=== PATIENT | female | born 1985 | race Caucasian/White ===

== ENCOUNTER 2017-03-13 01:39 | Emergency (ER) | payer OTHER ==
[~2017-03-13 01:39] MED LIST: AMOXICILLIN500 M2 PO; AUGMENTIN 875-1 EAC2 PO; BETA BLOCKER; CLINDAMYCIN HC300 MG PO; COLACE100 MG; COMPAZINE10 MG PO; FASTIN30 MG PO; FIBER CHOICE PO; HYDROCODON-ACE1 EA16 PO; MAGNESIUM CITR296 ML PO; METFORMIN HCL500 M4 PO; METOPROLOL SUCC50 M1 PO; MIRALAX255 GM PO; MULTI-VITAMIN1 EAC1 PO; MULTIVITAMIN1 TAB PO; NORCO 5-325 TA1 EACH PO; NORCO 5/325 TAB1 TAB PO; NORCO 5/3251 TAB PO; OMEPRAZOLE20 M4 PO; PEN-VEE K500 MG PO; PENICILLIN V P500 M1 PO; PRENATAL1 TAB; PRILOSEC OTC20 MG PO; PRILOSEC20 M1 PO; QSYMIA 3.75 MG1 EACH PO; SAXENDA3 MG/0.5 M; TENORMIN50 M1 PO; TOPROL XL25 MG PO; VERTICALM25 MG PO; WELLBUTRIN; XANAX0.25 MG PO; XANAX0.5 M1 PO; ZOFRAN ODT4 MG PO; [UNRECOGNIZED DRUG - OTHER] PO; [UNRECOGNIZED DRUG - REMARK]; [UNRECOGNIZED DRUG - REMARK]
[2017-03-13 03:39] LABS: BASO % 0.2 % (0-2); EOS % 1.4 % (0-7); EOSINOPHIL ABSOLUTE COUNT 0.1 tho/cmm (0.0-0.7); HCT-HEMATOCRIT 40.9 % (34.0-49.0); HGB-HEMOGLOBIN 13.4 gm/dl (12.0-15.5); IMMATURE GRANULOCYTES ABSOLUTE 0.02 tho/cmm (0-0.03); IMMATURE GRANULOCYTES PERCENT 0.2 % (0-0.3); LYMPH % 37.8 % (20-45); MCH (MEAN CORPUSCULAR HGB) 28.3 pg (28.0-32.0); MCHC MEAN CORPUSCULAR HGB CONC 32.8 % (32.0-36.0); MCV (MEAN CELL VOLUME) 86.5 fl (82.0-96.0); MEAN PLATELET VOLUME 11.3 cmc (9.4-12.4); MONO % 5.3 % (0-12); MONOCYTE ABSOLUTE COUNT 0.4 tho/cmm (0.0-1.2); NEUTROPHIL ABSOLUTE COUNT 4.4 tho/cmm (1.6-8.0); NEUTROPHIL-AUTOMATED 4.4 tho/cmm (1.6-8.0); NEUTROPHILS % 55.1 % (40-80); PLATELET COUNT 225 tho/cmm (150-450); RED BLOOD COUNT 4.73 mil/cmm (4.00-5.20); RED CELL DISTRIBUTION WIDTH 14.3 % (12.4-16.4); WHITE BLOOD COUNT 8.1 tho/cmm (4.0-10.0)
[2017-03-13 04:48] LABS: BLOOD UREA NITROGEN 15 mg/dl (6-24); CALCIUM 8.5 mg/dl (8.5-10.5); CARBON DIOXIDE-VENOUS 24 mmol/L (22-32); CHLORIDE 109 mmol/l (96-110); CREATININE 0.96 mg/dl (0.50-1.10); GLUCOSE 108 mg/dL (70-110); SODIUM 142 mmol/L (135-145); eGFR VALUE FOR BLACK >90 mL/Min
[2017-03-13 04:52] LABS: TSH-THYROID STIMULATING HORM. 2.09 uIU/ml (0.40-3.80)
[2017-03-13 04:53] LABS: ANION GAP 13 mmol/L (0-20); MAGNESIUM 2.2 mg/dl (1.8-2.6)
[2017-03-13 04:54] LABS: POTASSIUM 3.8 mmol/L (3.7-5.1)
== END 2017-03-13 06:00 ==
LOC: EDMED 01:39
PROVIDERS: Emergency Medicine
DX: I49.3 Ventricular premature depolarization (principal); Z90.49 Acquired absence of other specified parts of digestive tract
CPT/HCPCS: C1751; J7030

== ENCOUNTER 2017-04-25 22:31 | Emergency (ER) | payer OTHER ==
[2017-04-25 23:34] LABS: URINE BILIRUBIN NEGATIVE (NEG); URINE BLOOD SMALL (NEG); URINE GLUCOSE (UA) NEGATIVE (NEG); URINE KETONE NEGATIVE (NEG); URINE LEUKOCYTE ESTERASE POSITIVE (NEG); URINE NITRITE NEGATIVE (NEG); URINE PROTEIN SMALL (NEG); URINE SPECIFIC GRAVITY 1.015 (1.003-1.030)
[2017-04-25 23:35] LABS: URINE APPEARANCE HAZY; URINE COLOR YELLOW
[2017-04-25 23:40] LABS: URINE BACTERIA 2+
[2017-04-26] MEDS ORDERED: CIPRO500 M2 PO (00:21)
[2017-04-26] MEDS ORDERED: ZOFRAN4 M2 PO (00:21)
[2017-04-26] MEDS ORDERED: NORCO 5/3251 TAB PO (00:31)
[2017-04-26] MEDS ORDERED: PYRIDIUM100 M2 PO (00:31)
== END 2017-04-26 00:43 ==
LOC: EDMED 22:31
PROVIDERS: Emergency Medicine
DX: N12 Tubulo-interstitial nephritis, not specified as acute or chronic (principal); Z88.5 Allergy status to narcotic agent